=== PATIENT | female | born 1990 | race Two or more races ===

== ENCOUNTER 2024-05-09 17:23 | Emergency (ER) | payer MEDICAID, SELFPAY ==
[2024-05-09 17:24] VITALS: BMI 35.9
[2024-05-09 17:54] VITALS: BP 144/81; PULSE 81; RESP 18; TEMP 36.9; O2SAT 99
--- NOTE | 2024-05-09 17:55 | XR_ITS ---
Examination: Complete OB ultrasound, less than 14 weeks, transabdominal Date and time of exam: May 09, 2024 6:27 PM INDICATIONS: Vaginal bleeding beginning 2 days ago Technique: Obstetrical ultrasound images less than 14 weeks performed via transabdominal imaging Findings: Uterus 9.1 x 4.6 x 5.3 cm Intrauterine gestational sac 1.6 cm corresponds to 6 weeks 3 days gestational age No pole No cardiac activity Right ovary 3.3 cm arterial flow Left 3.3 cm arterial flow IMPRESSION: Empty intrauterine gestational sac corresponding to 6 weeks 3 days gestational age Recommend short term follow-up transvaginal pelvic sonography to document viability
--- NOTE | 2024-05-09 17:55 | PD.EDRME ---
Rapid Medical Screening Exam E Arrival date/time: 05/09/24 17:23 34-year-old female with no known medical history presents to the emergency room with a chief complaint of vaginal bleeding and lower abdominal cramping x 1 day. Patient is currently 7 weeks she is a G1, P0. I have greeted and performed a focused initial assessment of this patient. A comprehensive ED assessment and evaluation of the patient, analysis of all test results, and completion of the medical decision making process will be conducted by additional ED providers. Chief Complaint: Vaginal Bleeding Vital signs reviewed by provider: Yes
[2024-05-09 18:34] LABS: Basophils % (Auto) 0 % (0-2.5); Eosinophils # (Auto) 0.4 Thou/mm3 (0.0-0.5); Eosinophils % (Auto) 3 % (0-10); Hematocrit 39.8 % (36.0-46.0); Hemoglobin 13.7 g/dL (12.0-16.0); Immature Granulocytes % (Auto) 0 % (0-0); Immature Granulocytes Auto 0.03 Thou/mm3 (0.00-0.00); Lymphocytes # (Auto) 3.3 Thou/mm3 (1.0-4.8); Lymphocytes % (Auto) 25 % (10-50); Mean Corpuscular HGB Conc 34.4 g/dl (31.0-37.0); Mean Corpuscular Hemoglobin 28.7 pg (25.0-35.0); Mean Corpuscular Volume 83 fL (80-100); Monocytes # (Auto) 0.9 Thou/mm3 (0.0-0.8); Monocytes % (Auto) 7 % (0-12); Neutrophils # (Auto) 8.6 Thou/mm3 (1.8-7.7); Neutrophils % (Auto) 65 % (37-80); Nucleated Red Blood Cell % 0 /100 WBC (0); Platelet Count 243 Thou/mm3 (140-440); RDW Standard Deviation 39.5 fL (36.4-46.3); Red Blood Count 4.78 Miln/mm3 (4.00-5.20); White Blood Count 13.2 Thou/mm3 (3.6-11.0)
[2024-05-09 18:48] LABS: Alanine Aminotransferase 16 U/L (10-49); Albumin, Serum 4.3 gm/dL (3.5-5.0); Albumin/Globulin Ratio 1.6 (1.2-2.2); Alkaline Phosphatase 54 U/L (46-116); Anion Gap 9 (7-16); Aspartate Amino Transferase 11 U/L (0-34); BUN/Creatinine Ratio 17 Ratio (12-20); Bilirubin,Total 0.5 mg/dL (0.3-1.2); Blood Urea Nitrogen 12 mg/dL (9-23); Carbon Dioxide 22.6 mMol/L (20.0-31.0); Chloride 105 mMol/L (98-107); Creatinine (Component) 0.7 mg/dL (0.6-1.3); Globulin 2.7 gm/dL (2.3-3.5); Glucose 89 mg/dL (74-106); Osmolality,Calculated 272 (275-295); Potassium 4.3 mMol/L (3.4-5.1); Sodium 137 mMol/L (136-145); eGFR > 60 See Note
[2024-05-09 19:18] LABS: Beta HCG,Quantitative 32832 mIU/mL (<5.0)
[2024-05-09 19:49] LABS: Collection Type, Urine Clean Catch
[2024-05-09 20:19] LABS: Bilirubin,Urine Negative (Negative); Blood,Urine 3+ (Negative); Clarity,Urine Clear (Clear/Hazy); Color,Urine Lt-Brown (Lt Yel-Yel); Glucose, Urine Negative (Negative); Ketones,Urine Negative (Negative); Leukocyte Esterase,Urine Positive (Negative); Nitrite,Urine Negative (Negative); Protein,Urine 1+ (Neg - Trace); RBC,Urine 161 /hpf (0-3); Specific Gravity,Urine 1.019 (1.001-1.035); Squamous Epithelial Cell,Urine 6 /hpf (0-5); Urobilinogen,Urine Negative mg/dL (0.0-1.0); WBC,Urine 7 /hpf (0-5)
[2024-05-09 20:23] LABS: Sperm,Urine Present
[2024-05-09 21:24] VITALS: BP 126/85; PULSE 73; RESP 18; TEMP 36.8; O2SAT 99
--- NOTE | 2024-05-09 21:24 | EDNOTE_ITS ---
ED OB Contraction Preg RMI/HPI General Chief complaint: Vaginal Bleeding Stated complaint: VAGINAL BLEEDING AND CURRENTLY , LMP 12/15 Time Seen by Provider: 05/09/24 21:23 Arrival date/time: 05/09/24 17:23 34 year old female present to emergency room with c/o of vaginal bleeding/spotting today. per patient unsure how many weeks she is. LOCATION: suprapubic SEVERITY: Symptoms are described as being severe with limitations on activities of daily living QUALITY: Symptoms are described as being cramping CONTEXT: The patient is unable to identify any inciting events. DURATION/TIMING: The symptoms started approximately one day ago and have been waxing/waning but always present without ever completely resolving. ASSOCIATED SYMPTOMS: The patient is unable to identify any other associated symptoms. MODIFYING FACTORS: The patient is unable to identify any alleviating or aggravating symptoms. PERTINENT ROS: denies trauma, denies domestic violence, no dysuria or hematuria, no orthostatic symptoms, no nausea or vomiting, no fevers, no anorexia, no diarrhea or constipation REVIEW OF SYSTEMS: See History of Present Illness - with the exception of those mentioned in the history of present illness, all other systems reviewed and reported as negative GENERAL: In general the patient is awake, interactive, in an emergency department gurney. HEAD/EYES/EARS/NOSE/THROAT: normo-cephalic, atraumatic, mucus membranes are moist, anicteric, palpebral conjunctiva is pink, trachea is midline. CARDIOVASCULAR: regular rate and regular rhythm, no murmurs, heart sounds are not distant, strong pulses in all four extremities that are equal and symmetric bilateral upper and lower extremities, normal capillary refill. CHEST/PULMONARY: normal chest rise and fall, good air movement, clear to auscultation bilaterally, normal inspiratory to expiratory ratios without evidence of respiratory distress. NECK: No midline/Paraspinal tenderness, no step off ROM/Strenght intact No Kernig and bruzinski sign. No trauma ABDOMEN: soft, not tender, no masses appreciated BACK: normal range of motion without pain. NEUROLOGICAL: cranio-facial features are symmetric, moves all four extremities equally without obvious limitations or weakness. EXTREMITY: no tenderness to palpation over the long bones or large joints of the bilateral upper and lower extremities, no joint swelling, no joint erythema, no signs of trauma, no unilateral leg swelling and no peripheral edema. SKIN: warm, dry, well-perfused, no jaundice, no rash, no telangiectasias or petechia. PSYCH: calm, cooperative, no evidence of psychosis or agitation RME / HPI RME / HPI Narrative: 05/09/24 17:23 34-year-old female with no known medical history presents to the emergency room with a chief complaint of vaginal bleeding and lower abdominal cramping x 1 day. Patient is currently 7 weeks she is a G1, P0. I have greeted and performed a focused initial assessment of this patient. A comprehensive ED assessment and evaluation of the patient, analysis of all test results, and completion of the medical decision making process will be conducted by additional ED providers. Related Data Allergies Allergy/AdvReac Type Severity Reaction Status Date / Time No Known Allergies Allergy Verified 05/09/24 17:24 Course Course Course Narrative: This patient presents with vaginal bleeding in the first trimester. DDX includes ectopic, IUP, threatened/inevitable , along with completed ab ortion. Patient is HDS and without a history of coagulopathy or infectious symptoms. Doubt alternate acute emergent pathology. Plan: bHCG, +/- basic labs, type and screen, TVUS, reassess Quality Measures none Orders Category Date Time Status US OB <= 14 weeks fetus Stat Exams 05/09/24 17:55 Completed ABO/RH Type Stat Lab 05/09/24 18:06 Completed Beta HCG,Quantitative Stat Lab 05/09/24 18:06 Completed CBC Stat Lab 05/09/24 18:06 Completed CMP [Comprehensive Metabolic Panel] Stat Lab 05/09/24 18:06 Completed UA [Urinalysis] Stat Lab 05/09/24 18:25 Completed Vital Signs Vital signs: Vital Signs Temperature 98.4 F 05/09/24 17:54 Pulse Rate 81 05/09/24 17:54 Respiratory Rate 18 05/09/24 17:54 Blood Pressure 144/81 H 05/09/24 17:54 Pulse Oximetry (%) 99 05/09/24 17:54 Oxygen Delivery Method Room Air 05/09/24 17:54 Vaginal Bleeding Patient data External records reviewed:: None Clinical information provided by:: patient Social determinants that could affect healthcare access:: none Patient has the following chronic illnesses:: none How is presenting disease/condition affected by chronic disease/condition?: no chronic disease Evaluation data The following diagnostics were reviewed and interpreted by me:: lab results and radiology exam(s) Lab and/or radiology exams considered but not ordered:: none Interpretation Summary: hcg; 32k us: Uterus 9.1 x 4.6 x 5.3 cm Intrauterine gestational sac 1.6 cm corresponds to 6 weeks 3 days gestational age No pole No cardiac activity Right ovary 3.3 cm arterial flow Left 3.3 cm arterial flow IMPRESSION: Empty intrauterine gestational sac corresponding to 6 weeks 3 days gestational age Recommend short term follow-up transvaginal pelvic sonography to document viability urine dirty specimen, urine culture pending, denies any current uti sx Medications / Prescriptions Medications or Prescriptions considered but not ordered:: none Medication administrations:: none Consultations Consultation(s) initiated? (list below): No Diagnosis Vaginal Bleeding Differential Diagnosis: missed , threatened , dysfunctional uterine bleeding, ectopic without intrauterine , vaginal bleeding and other (UTI) Most likely diagnosis given after review of the tests above:: vaginal bleeding, Admission Indicated Admission indicated?: not indicated Admission Request Was there a request for admission?: No Disposition Plan Disposition Plan: Discharge Discharge Attestation Discharge Attestation: The patient and all family members were given an opportunity to ask questions and understood the discharge instructions. Discharge instructions specifically effects, indications for sooner follow up or return to the emergency department, and the expected course of current diagnosis. Patient condition: Stable Discharge Plan Plan Patient Disposition: HOME (Self Care) Health Concerns: Return to ED or OB for repeat US Return to ED if symptoms worsen Prescriptions/Referrals Referrals: No Primary/Family,Physician [Primary Care Provider] - In 1 week Problem List Clinical Impression: Vaginal bleeding during Patient/Caregiver Discharge Instructions Education Materials: Bleeding During Early Print Language: Maltese Stand Alone Forms: [employer] Award Info., Patient Portal Info Letter
[2024-05-09 21:31] VITALS: RESP 18
== END 2024-05-09 21:32 | disposition home or self-care (01) ==
PROVIDERS: Nurse Practitioner Family; Emergency Provider Emergency Medicine
DX: O20.9 Hemorrhage in early pregnancy, unspecified (principal); Z3A.01 Less than 8 weeks gestation of pregnancy
CPT/HCPCS: 36415; 76801; 80053; 81001; 84702; 85025; 86900; 86901; 87086; 99284

== ENCOUNTER 2024-05-26 20:00 | Emergency (ER) | payer MEDICAID, SELFPAY ==
[2024-05-26 20:02] VITALS: BMI 35.9
[2024-05-26 20:17] VITALS: BP 140/84; PULSE 85; RESP 18; TEMP 36.7; O2SAT 97
--- NOTE | 2024-05-26 20:25 | XR_ITS ---
Examination: OB Transvaginal ultrasound of the pelvis, complete Technique: Transvaginal sonographic images pelvis performed using rivera scale imaging Exam date and time: May 26, 2024 11:13 PM Indications: Pelvic pain beginning today Findings: Uterus 11.7 cm pole 2.1 cm corresponds to 8 weeks 5 day gestational age Cardiac motion 166 BPM Right ovary 2.9 cm arterial flow Left ovary 3.4 cm arterial flow small follicles Impression: Viable intrauterine gestation 8 weeks 5 days.
--- NOTE | 2024-05-26 20:42 | EDNOTE_ITS ---
<Statement entered by Nyasia Shen MD - 05/27/24 04:04> As co-signing physician, I was present and available for consult prn. I concur with the plan and care as documented by the midlevel provider. ED OB Contraction Preg RMI/HPI General Chief complaint: OB/Uterine Contractions Stated complaint: 8 weeks preg. . Sharp pains Time Seen by Provider: 05/26/24 20:24 Arrival date/time: 05/26/24 20:00 34F at approximately 8 weeks and with no significant PMH presents to ED with 1 day of L pelvic pain/cramping, but no dysuria/hematuria or vaginal bleeding. Limitations: no limitations Related Data Allergies Allergy/AdvReac Type Severity Reaction Status Date / Time No Known Allergies Allergy Verified 05/09/24 17:24 Review of Systems Review of Systems Systems Reviewed: All systems reviewed, normal except as documented Constitutional Constitutional: Reports system reviewed and no additional complaints, except as documented, Denies fever(s) and Denies headache(s) ENT Ears, Nose, Mouth, and Throat: Denies disequilibrium and Denies headache(s) Cardiovascular Cardiovascular: Reports system reviewed and no additional complaints, except as documented, Denies chest pain and Denies dyspnea Respiratory Respiratory: Reports system reviewed and no additional complaints, except as documented, Denies cough and Denies dyspnea Gastrointestinal Gastrointestinal: Reports system reviewed and no additional complaints, except as documented, Denies abdominal pain, Denies nausea and Denies vomiting Genitourinary Genitourinary: Reports as per HPI and Reports pelvic pain Neurologic Neurologic: Reports system reviewed and no additional complaints, except as documented, Denies confusion, Denies disequilibrium and Denies headache(s) Psychiatric Psychiatric: Denies confusion Past Medical History Social History SMOKING STATUS: Never smoker ED Exam General Limitations: Present no limitations General appearance: Present alert and in no apparent distress Head Head exam: Present atraumatic Eye Eye exam: Present normal appearance, PERRL and EOMI ENT ENT exam: Present normal exam, normal oropharynx and mucous membranes moist Neck Neck exam: Present normal inspection, full ROM and trachea midline Chest Chest inspection: Present normal inspection and symmetric chest wall rise Respiratory Respiratory exam: Present normal lung sounds bilaterally Cardiovascular Cardiovascular exam: Present regular rate, normal rhythm and normal heart sounds Abdominal Exam Abdominal exam: Present soft and normal bowel sounds Extremities Exam Extremities exam: Present normal inspection and full ROM Back Exam Back exam: Present normal inspection and full ROM Neurological Exam Neurological exam: Present alert, oriented X3 and CN II-XII intact Psychiatric Psychiatric exam: Present normal affect and normal mood Skin Skin exam: Present warm, dry, intact and normal color Course Quality Measures none Orders Category Date Time Status US OB transvaginal Stat Exams 05/26/24 20:25 Completed Beta HCG,Quantitative Stat Lab 05/26/24 20:34 Completed CBC Stat Lab 05/26/24 20:34 Completed CMP [Comprehensive Metabolic Panel] Stat Lab 05/26/24 20:34 Completed Urinalysis, C/S if Indicated Stat Lab 05/26/24 21:03 Completed Vital Signs Vital signs: Vital Signs Temperature 98.1 F 05/26/24 20:17 Pulse Rate 85 05/26/24 20:17 Respiratory Rate 18 05/26/24 20:17 Blood Pressure 140/84 H 05/26/24 20:17 Pulse Oximetry (%) 97 05/26/24 20:17 Oxygen Delivery Method Room Air 05/26/24 20:17 O2 at 97% on RA and WNLs Vaginal Bleeding MDM Narrative MDM Narrative: 34F at approximately 8 weeks and with no significant PMH presents to ED with 1 day of L pelvic pain/cramping, but no dysuria/hematuria or vaginal bleeding. Physical exam reveals no pelvic tenderness. Patient is afebrile, calm, and alert. US reveals normal IUP. Nabothian cysts were noted on cervix. UA contaminated but sperm also present. Beta HCG WNLs. Pain likely due to intercourse that irritated cysts. Patient data External records reviewed:: [facility] previous records Clinical information provided by:: patient Social determinants that could affect healthcare access:: none Patient has the following chronic illnesses:: none How is presenting disease/condition affected by chronic disease/condition?: no chronic disease Evaluation data The following diagnostics were reviewed and interpreted by me:: lab results and radiology exam(s) Lab and/or radiology exams considered but not ordered:: ordered Interpretation Summary: above Medications / Prescriptions Medications or Prescriptions considered but not ordered:: not ordered Medication administrations:: n/a Consultations Consultation(s) initiated? (list below): No Diagnosis Vaginal Bleeding Differential Diagnosis: missed , threatened , dysfunctional uterine bleeding, menometrorrhagia, incomplete , ectopic without intrauterine , vaginal bleeding and other (ovarian cyst/torsion, nabothian cyst) Most likely diagnosis given after review of the tests above:: nabothian cyst Admission Indicated Admission indicated?: not indicated Admission Request Was there a request for admission?: No Disposition Plan Disposition Plan: Discharge Discharge Attestation Discharge Attestation: The patient and all family members were given an opportunity to ask questions and understood the discharge instructions. Discharge instructions specifically effects, indications for sooner follow up or return to the emergency department, and the expected course of current diagnosis. Patient condition: Stable Discharge Plan Plan Patient Disposition: HOME (Self Care) Disposition Comment: Stable Prescriptions/Referrals Referrals: Marjorie Silveira [employer] [Primary Care Provider] - In 1 week Problem List Clinical Impression: Nabothian cyst Patient/Caregiver Discharge Instructions Additional Instructions: Please follow-up with PCP/OBGYN within 24-48 hours and return immediately if symptoms worsen. Print Language: Uzbek Stand Alone Forms: Patient Portal Info Letter LORENA/SHAHEED Supervising Physician LORENA/SHAHEED Supervising Physician: Dr. Shen
[2024-05-26 21:03] LABS: Basophils % (Auto) 0 % (0-2.5); Eosinophils # (Auto) 0.3 Thou/mm3 (0.0-0.5); Eosinophils % (Auto) 2 % (0-10); Hematocrit 37.5 % (36.0-46.0); Immature Granulocytes % (Auto) 1 % (0-0); Immature Granulocytes Auto 0.07 Thou/mm3 (0.00-0.00); Lymphocytes # (Auto) 3.5 Thou/mm3 (1.0-4.8); Lymphocytes % (Auto) 24 % (10-50); Mean Corpuscular HGB Conc 34.7 g/dl (31.0-37.0); Mean Corpuscular Hemoglobin 28.6 pg (25.0-35.0); Mean Corpuscular Volume 82 fL (80-100); Monocytes % (Auto) 7 % (0-12); Neutrophils # (Auto) 9.6 Thou/mm3 (1.8-7.7); Neutrophils % (Auto) 66 % (37-80); Nucleated Red Blood Cell % 0 /100 WBC (0); Platelet Count 221 Thou/mm3 (140-440); RDW Standard Deviation 38.9 fL (36.4-46.3); Red Blood Count 4.55 Miln/mm3 (4.00-5.20); White Blood Count 14.5 Thou/mm3 (3.6-11.0)
[2024-05-26 21:15] LABS: Collection Type, Urine Clean Catch
[2024-05-26 21:25] LABS: Alanine Aminotransferase 24 U/L (10-49); Albumin, Serum 4.2 gm/dL (3.5-5.0); Albumin/Globulin Ratio 1.6 (1.2-2.2); Alkaline Phosphatase 49 U/L (46-116); Anion Gap 9 (7-16); Aspartate Amino Transferase 13 U/L (0-34); BUN/Creatinine Ratio 20 Ratio (12-20); Bilirubin,Total 0.4 mg/dL (0.3-1.2); Blood Urea Nitrogen 12 mg/dL (9-23); Calcium 9.5 mg/dL (8.3-10.6); Calcium (Corrected) 9.5 mg/dL (8.5-10.1); Carbon Dioxide 23.9 mMol/L (20.0-31.0); Chloride 106 mMol/L (98-107); Creatinine (Component) 0.6 mg/dL (0.6-1.3); Estimated Creatinine Clearance 134.2 mL/min (>60); Globulin 2.6 gm/dL (2.3-3.5); Glucose 102 mg/dL (74-106); Osmolality,Calculated 277 (275-295); Potassium 3.8 mMol/L (3.4-5.1); Sodium 139 mMol/L (136-145); Total Protein 6.8 gm/dL (5.7-8.2); eGFR > 60 See Note
[2024-05-26 21:57] LABS: Bilirubin,Urine Negative (Negative); Blood,Urine Trace (Negative); Budding Yeast,Urine Present; Clarity,Urine Turbid (Clear/Hazy); Color,Urine Yellow (Lt Yel-Yel); Culture Indicated,Urine Contaminated; Glucose, Urine Negative (Negative); Ketones,Urine Negative (Negative); Leukocyte Esterase,Urine Positive (Negative); Nitrite,Urine Negative (Negative); Protein,Urine Trace (Neg - Trace); RBC,Urine 14 /hpf (0-3); Specific Gravity,Urine 1.035 (1.001-1.035); Squamous Epithelial Cell,Urine 114 /hpf (0-5); Urobilinogen,Urine Negative mg/dL (0.0-1.0); WBC,Urine 46 /hpf (0-5)
[2024-05-26 22:02] LABS: Beta HCG,Quantitative 180164 mIU/mL (<5.0)
[2024-05-26 22:03] LABS: Sperm,Urine Present
== END 2024-05-27 00:07 | disposition home or self-care (01) ==
PROVIDERS: Physician Assistant; Emergency Provider Emergency Medicine; PCP Nurse Practitioner Family
DX: O34.81 Maternal care for other abnormalities of pelvic organs, first trimester (principal); N88.8 Other specified noninflammatory disorders of cervix uteri; Z3A.08 8 weeks gestation of pregnancy
CPT/HCPCS: 36415; 76817; 80053; 81001; 84702; 85025; 99284

== ENCOUNTER 2024-08-19 17:51 | Observation (INO) | payer MEDICAID, SELFPAY ==
[2024-08-19 18:10] VITALS: BP 137/71; PULSE 85
[2024-08-19 18:25] VITALS: BMI 37.5
--- NOTE | 2024-08-19 18:36 | ESPR_ITS ---
Documentation for date of: 08/19/24 OB Labor Progress Note Contractions Monitor mode: External Assessment and Plan Comments: Triage Note Jacqueline is a 34yo with SIUP at 22wk presenting to L&D for lower back pain. She ran around the park with her dogs for a bit and when she went home, she used the restroom and while on the toilet had back pain that made it difficult to stand up. She took 1 flexeril and placed a lidocaine patch. Pain has improved though not totally resolved. She notes having a history of lower back pain prior to . No lof, no vaginal bleeding, no ctx, no abdominal pain. Normal movement. Current : This has been otherwise uncomplicated, she has had regular OB care with Dr. Maira HELM negative other than what was described above. Vitals wnl, afebrile General: well developed, well nourished, no acute distress, conversant Cardiac: normal heart rate Lungs: breathing without distress Abdomen: soft, gravid, non-tender, no rebound or guarding Extremities: no edema of BLE NST: Reassuring for gestational age [place]: no ctx pattern Assessment: Jacqueline is a 34yo with SIUP at 22wk with lower back pain, pre- existing and exacerbated by physiologic changes of . No red flag symptoms. Vitals wnl, benign exam. Reassuring status. Plan: -Discussed findings and diagnosis with patient and support person, answered all questions to their apparent satisfaction -Continue routine follow up with OBGYN as scheduled within a week. Instructed patient to ask her OBGYN for referral to Physical Therapy. -Recommend heating pad or warm shower, massage, avoiding movements that exacerbate pain, ok to take tylenol 1000mg PO Q6hr prn -Belly band provided from L[employer]D supply -Discussed return precautions -Safe for discharge home at this time Enedina Starkey MD
[2024-08-19 18:53] VITALS: BP 137/71; PULSE 85; RESP 18; RESP 99; TEMP 36.8
== END 2024-08-19 18:40 | disposition home or self-care (01) ==
PROVIDERS: Admitting Provider Obstetrics & Gynecology; Visit Provider Obstetrics & Gynecology
DX: O26.892 Other specified pregnancy related conditions, second trimester (principal); Z3A.22 22 weeks gestation of pregnancy; M54.50 Low back pain, unspecified
CPT/HCPCS: 59025; 59899

== ENCOUNTER 2024-12-13 13:59 | Inpatient (IN) | payer MEDICAID, SELFPAY ==
[2024-12-13] VITALS (137 sets, daily range): BP systolic 108–179; BP diastolic 58–102; PULSE 82–116; RESP 17–98; TEMP 36.6–36.7; O2SAT 88–100; BMI 48.9
[2024-12-13 13:19] LABS: Basophils # (Auto) 0.0 Thou/mm3 (0.0-0.2); Basophils % (Auto) 0 % (0-2.5); Eosinophils # (Auto) 0.2 Thou/mm3 (0.0-0.5); Eosinophils % (Auto) 2 % (0-10); Hematocrit 35.8 % (36.0-46.0); Hemoglobin 12.3 g/dL (12.0-16.0); Immature Granulocytes Auto 0.08 Thou/mm3 (0.00-0.00); Lymphocytes # (Auto) 2.1 Thou/mm3 (1.0-4.8); Lymphocytes % (Auto) 19 % (10-50); Mean Corpuscular HGB Conc 34.4 g/dl (31.0-37.0); Mean Corpuscular Hemoglobin 28.5 pg (25.0-35.0); Mean Corpuscular Volume 83 fL (80-100); Monocytes # (Auto) 0.8 Thou/mm3 (0.0-0.8); Monocytes % (Auto) 8 % (0-12); Neutrophils # (Auto) 7.7 Thou/mm3 (1.8-7.7); Neutrophils % (Auto) 71 % (37-80); Nucleated Red Blood Cell # 0.00 Thou/mm3 (0.00-0.00); Nucleated Red Blood Cell % 0 /100 WBC (0); Platelet Count 156 Thou/mm3 (140-440); RDW Standard Deviation 42.9 fL (36.4-46.3); Red Blood Count 4.31 Miln/mm3 (4.00-5.20); White Blood Count 10.9 Thou/mm3 (3.6-11.0)
[2024-12-13 13:21] LABS: Collection Type, Urine Clean Catch; RBC,Urine 0 /hpf (0-3)
[2024-12-13 13:31] LABS: Bacteria,Urine 1+; Bilirubin,Urine Negative (Negative); Blood,Urine Negative (Negative); Clarity,Urine Turbid (Clear/Hazy); Color,Urine Yellow (Lt Yel-Yel); Glucose, Urine Negative (Negative); Hyaline Casts,Urine < 1 /hpf (0-1); Ketones,Urine Negative (Negative); Leukocyte Esterase,Urine Positive (Negative); Nitrite,Urine Negative (Negative); PH,Urine 7.0 (5.0-7.0); Protein,Urine Trace (Neg - Trace); Specific Gravity,Urine 1.017 (1.001-1.035); Squamous Epithelial Cell,Urine 35 /hpf (0-5); Urobilinogen,Urine Negative mg/dL (0.0-1.0); WBC,Urine 9 /hpf (0-5)
[2024-12-13 13:36] LABS: Creatinine,Random Urine 78 mg/dL (30-125); Protein Total, Random Urine 39 mg/dL (1-14)
[2024-12-13 13:38] LABS: Alanine Aminotransferase 15 U/L (10-49); Albumin, Serum 3.5 gm/dL (3.5-5.0); Albumin/Globulin Ratio 1.8 (1.2-2.2); Alkaline Phosphatase 105 U/L (46-116); Anion Gap 11 (7-16); Aspartate Amino Transferase 17 U/L (0-34); BUN/Creatinine Ratio 12 Ratio (12-20); Bilirubin,Total 0.5 mg/dL (0.3-1.2); Blood Urea Nitrogen 7 mg/dL (9-23); Calcium 9.4 mg/dL (8.3-10.6); Calcium (Corrected) 9.8 mg/dL (8.5-10.1); Carbon Dioxide 19.1 mMol/L (20.0-31.0); Chloride 110 mMol/L (98-107); Creatinine (Component) 0.6 mg/dL (0.6-1.3); Estimated Creatinine Clearance 160.8 mL/min (>60); Globulin 2.0 gm/dL (2.3-3.5); Glucose 84 mg/dL (74-106); LDH (Lactate Dehydrogenase) 158 U/L (120-246); Osmolality,Calculated 276 (275-295); Potassium 4.4 mMol/L (3.4-5.1); Sodium 140 mMol/L (136-145); Total Protein 5.5 gm/dL (5.7-8.2); Uric Acid 4.4 mg/dL (3.1-7.8); eGFR > 60 See Note
[2024-12-13 14:26] LABS: INR 0.9 (0.9-1.3); Partial Thromboplastin Time 27.3 Seconds (22.0-36.0); Prothrombin Time 10.2 Seconds (9.0-12.2)
[2024-12-13 14:27] LABS: Fibrinogen 702 mg/dL (175-375)
--- NOTE | 2024-12-13 15:04 | XR_ITS ---
Examination: Complete OB ultrasound greater than 14 weeks Date and time of exam: December 13, 2024, 1529 hrs. Indications: Diagnosis preeclampsia of . Findings: Viable intrauterine single fetus with single amniotic sac presentation cephalic, spine maternal left. Cardiac motion 130 BPM. Placenta anterior grade 2. Umbilical cord insertion seen. Amniotic fluid index 9.8 cm. spine maternal left. Cervix 3.0 cm. Ovaries obscured by bowel gas.. Composite estimated gestational age based on BPD, head circumference, abdominal circumference, femur length is 38 weeks 2 days. Estimated weight 3351.8 g.. Survey of intracranial anatomy, spinal anatomy, abdominal anatomy, four-chamber heart performed with no abnormalities identified. Impression: Viable intrauterine gestation cephalic presentation..
[2024-12-13] MEDS: RINGERS LACTATED 1000 ML 1,000 ML 100 ML IV ×2 (17:27→18:26)
[2024-12-13 17:49] LABS: Syphilis Nonreactive (Nonreactive)
--- NOTE | 2024-12-13 22:43 | ESHP_ITS ---
Documentation for date of: 12/13/24 OB Labor/Induct. HPI History of Present Illness Chief complaint: Elevated blood pressures : 1 Para: 1 Term pregnancies: 0 pregnancies: 0 Living children: 0 History of Abortions: Spontaneous and Elective: 0 History of Vaginal deliveries: 0 History of sections: No History of : No GRETCHEN: 12/26/24 History of present illness: 34-year-old 1 para 0 at 38 weeks and 1 day who receives care with Dr. Rao at [facility] was sent in from office due to elevated blood pressures in the severe range x 2. Patient initially presented to triage where her blood pressures were monitored and it continued to be elevated and her lab testing she had elevated urine protein creatinine ratio of 0.5 patient on presentation denies any headache or visual symptoms or epigastric or right upper quadrant pain. Patient does not report any baseline hypertension prior to and she was not being treated for any gestational hypertension during . She denies any contractions or leakage of fluid or vaginal bleeding and reports adequate movements. History of Present Adequate Care: Yes Labs Labs: Negative: RPR, Hepatitis B, Rubella Titre, HIV and Group Beta Strep and Unknown: Chlamydia, Gonorrhea, Herpes Type 1, Herpes Type 2 and Covid- 19 Review of Systems Review of Systems Systems Reviewed: All systems reviewed, normal except as documented Past Medical History Surgical History SURGICAL: Negative Section Meds Home Medications and Allergies Home Medications ?Medication ?Instructions ?Recorded ?Confirmed ?Type vit no.95-ferrous 1 tab PO QDAY 12/13/2412/03 History fumarate 28 mg-folic acid 800 mcg tablet () Allergies Allergy/AdvReac Type Severity Reaction Status Date / Time No Known Allergies Allergy Verified 12/13/24 15:24 OB Exam Physical Exam Vital signs: Temp Pulse Resp BP Pulse Ox O2 Del Method 98.1 F 89 17 121/64 99 Room Air 12/13/24 17:03 12/13/24 22:15 12/13/24 17:03 12/13/24 22:15 12/13/24 22:42 12/13/24 17:03 Constitutional Constitutional: no acute distress Routine HEENT Exam Head: Present normocephalic and atraumatic Eye: Present EOMI and PERRL ENT: Present mucous membranes moist Routine Neck Exam Neck: Present supple and trachea midline Routine Cardiovascular Exam Cardiovascular: Present RRR Routine Abdominal Exam Abdominal: Present soft and normoactive bowel sounds Detailed Labor and Delivery Exam Dilation (cm): 3 Effacement (%): 50 Cervix position: posterior station: -4 Consistency: firm Presentation: Vertex Baseline heart rate: 145 monitor accelerations: 15x15 monitor decelerations: None buttermaker continuous churn variability: Average (6-10) Routine Extremities Exam Extremities: Present full ROM Routine Skin Exam Skin: Present intact, dry and warm Routine Neurological Exam Neurological: Present alert, oriented X3 and CN II-XII intact Routine Psychiatric Exam Psychiatric: Present normal affect and normal thought process OB Results Labs 12/13/24 13:10 12/13/24 13:10 Labs: Short CBC 12/13/24 Range/Units 13:10 WBC 10.9 (3.6-11.0) Thou/mm3 Hgb 12.3 (12.0-16.0) g/dL Hct 35.8 L (36.0-46.0) % Plt Count 156 (140-440) Thou/mm3 BMP 12/13/24 13:10 Sodium 140 Potassium 4.4 Chloride 110 H Carbon Dioxide 19.1 L BUN 7 L Creatinine 0.6 Glucose 84 Calcium 9.4 Liver Function 12/13/24 Range/Units 13:10 Total Bilirubin 0.5 (0.3-1.2) mg/dL AST 17 (0-34) U/L ALT 15 (10-49) U/L Alkaline Phosphatase 105 (46-116) U/L Albumin 3.5 (3.5-5.0) gm/dL Urine 12/13/24 Range/Units 12:00 Urine Color Yellow (Lt Yel-Yel) Urine Clarity Turbid A (Clear/Hazy) Urine pH 7.0 (5.0-7.0) Ur Specific [place] 1.017 (1.001-1.035) Urine Protein Trace (Neg - Trace) Urine Glucose (UA) Negative (Negative) OB Assessment & Plan Assessment and Plan (1) Encounter for induction of labor: Status: Acute (2) Supervision of high risk , unspecified, third trimester: Status: Acute (3) Preeclampsia: Status: Acute Assessment and plan: 34-year-old 1 para 0 at 38 weeks and 1 day with new onset preeclampsia without severe features Plan: Admit to inpatient status for induction of labor Complete bedside ultrasound for EFW Preeclampsia labs reviewed with elevated Spot protein creatinine ratio Close monitoring of blood pressures Cervical ripening with misoprostol and will proceed to oxytocin when cervix is favorable Continuous maternal monitoring Patient informed of all the risks including the risk of requiring delivery if there is acute worsening of blood pressures or signs of distress (3) Preeclampsia Qualifiers: Trimester: third trimester Qualified Code(s): O14.93 - Unspecified pre- eclampsia, third trimester
[2024-12-14] VITALS (210 sets, daily range): BP systolic 112–240; BP diastolic 58–140; PULSE 81–115; RESP 16–18; TEMP 36.6–36.9; O2SAT 71–100
[2024-12-14 09:44] LABS: Chlamydia trachomatis PCR Negative (Not Detect); Neisseria Gonorrhoeae DNA PCR Negative (Not Detect); Trichomonas Negative (Negative)
--- NOTE | 2024-12-14 10:45 | PD.LDPN ---
Documentation for date of: 12/14/24 OB Labor Progress Note Pelvic Exam Dilation (cm): 3.5 Effacement (%): 60 station: -3 Amniotic membrane status: Intact Contractions Monitor mode: External Contraction frequency: 2-6 Contraction pattern: Coupling Contraction intensity: Mild Status status: Category l Assessment and Plan Comments: I assumed care of Jacqueline at 0700 this morning. In brief, she is a 34yo with SIUP at 38w1d undergoing IOL for pre-eclampsia withOUT severe features. She saw Dr. Rao for [facility] who sent her to L&D for PIH workup when she had severe range bp in office. Since arrival bp's are normal to mild range. Urine p:c 0.5. also complicated by current BMI 48.9. Induction was started with PO cytotec. She has now had 3 doses. Most recent SCE /-2. Cat I FHRT Will change dosing to PV with 4th cytotec dose. Continue to closely monitor bp's. CEFM Safe to proceed Enedina Starkey MD
[2024-12-14] MEDS: OXYTOCIN in NS 30 units 30 UNIT/500 ML BAG IV (12:05)
[2024-12-14] MEDS: RINGERS LACTATED 1000 ML 1,000 ML 100 ML IV ×2 (17:04→19:14)
[2024-12-14] MEDS: LABETALOL INJ 5 MG/ML VIAL 20 ML 20 MG IVP (21:02)
--- NOTE | 2024-12-14 21:29 | PD.LDPN ---
Documentation for date of: 12/14/24 OB Labor Progress Note Pelvic Exam Dilation (cm): 5 Effacement (%): 80 station: -2 Amniotic membrane status: Intact Contractions Monitor mode: External Contraction frequency: 1.5-2 Contraction pattern: Coupling Contraction intensity: Moderate Status status: Category l Assessment and Plan Comments: Intrapartum Note Patient had epidural, but she's still feeling ctx quite a bit. Recently had 2 severe range bp's which required labetalol 20mg IV push x1- related to pain. Cat I FHRT until AROM, then variable decels began timed with ctx- resolved with repositioning. Ctx q2min SCE: 6/80/-2, AROM performed with abundant clear fluid. IUPC and FSE placed. Will continue to titrate pitocin to adequate MVUs If any other severe range bp's recur, will initiate IV MgSO4 in conjunction with anti-HTN med protocol CEFM Will continue to closely monitor [employer] to re-eval epidural and maybe replace Safe to proceed Enedina Starkey MD
[2024-12-14] MEDS: LABETALOL INJ 5 MG/ML VIAL 20 ML 40 MG IVP (22:45)
[2024-12-14] MEDS: LABETALOL INJ 5 MG/ML VIAL 20 ML 80 MG IVP (23:06)
[2024-12-14] MEDS: Magnesium Sulfate 4 GM Ivpb 4 GM/50 ML BAG IV (23:11)
[2024-12-14] MEDS: MAGNESIUM SULF 20 GM IVPB 20 GM/500 ML BAG IV (23:41)
[2024-12-15] VITALS (54 sets, daily range): BP systolic 116–168; BP diastolic 56–100; PULSE 76–106; RESP 16–19; TEMP 36.6–37.2; O2SAT 86–100
[2024-12-15] MEDS: MINERAL OIL 30 ML UDC TOP (00:42)
[2024-12-15] MEDS: LIDOCAINE HCL 1% 20 ML VIAL INFL (00:55)
--- NOTE | 2024-12-15 01:29 | OBDSUM_ITS ---
Data (Patel) Data Hx Section: No : 1 Term: 0 : 0 Livin Abortions: Spontaneous & Theraputic: 0 Delivery Data (Patel) Labor Data Initiation of labor: Induction Induction/Augmentation Agent: Cytotec-PO, Pitocin and Artificial ROM ROM date: 12/14/24 ROM time: 21:19 Amniotic membrane rupture type: Artificial Amniotic fluid description: Clear Delivery Data Onset of labor date: 12/14/24 Onset of labor time: 21:19 Complete dilation date: 12/14/24 Complete dilation time: 23:34 delivery date: 12/15/24 [place] delivery time: 00:45 Placenta delivery date: 12/15/24 Placenta delivery time: 01:00 Stage 1 total time: Labor - Stage 1 Duration 2 hours and 15 minutes Delivered by: Enedina Starkey Delivery nurse: LUDMILA Mcleod Neworn nurse: LUDMILA Alvarez Logistics Planning Engineer at delivery: No Support person(s) at delivery: FOB AND MOM OF PATIENT Other staff at delivery: SHIRIN TAVERAS legal support specialist Method Delivery method: Normal Vaginal Delivery Presentation: Vertex Anesthesia Type Anesthesia Type: Epidural Placenta Placenta delivery description: Spontaneous Cord blood sent to lab: Yes cord blood collection: Cord Blood Type Episiotomy Episiotomy description: None EBL Estimated blood loss (ml): 300 Umbilical Cord cord description: 3 Vessels Additional Procedures Jacqueline is a 34yo [id number] s/p uncomplicated at 38w2d after undergoing IOL for pre-eclampsia WITH severe features, delivering at 0045 on 12/15/2024. On presentation, SCE was 2cm. She progressed with cytotec and then pitocin augmentation as well as AROM to C/C/0 at which point she began pushing. She received an epidural that was not fully effective and then had epidural later replaced which worked better. Initially she had mild range bp's but farther into labor she began to have severe range bp's, so she was started on IV MgSO4 4g/2g. She received IV labetalol 20mg, then 40mg and finally 80mg prior to delivery- this resulted in mild range bp's. With good maternal pushing efforts, infant's head delivered OA and restituted SIA. Left anterior shoulder delivered easily followed by posterior shoulder and corpus. had spontaneous cry and was vigorous. Apgars 8/9. placed on maternal abdomen where nose/mouth were suctioned and infant dri ed/stimulated. After approximately 2 minutes, cord was clamped x2 and cut by FOB. Cord blood collected for typing. With fundal massage and cord traction, placenta delivered spontaneously and intact with 3 vessel centrally inserted cord. Bimanual massage performed and IV pitocin given per protocol with fundus then firm at u-2cm and hemostasis noted. Inspection of perineum and vagina revealed bilateral labial lacerations and a 1st degree midline perineal laceration which were repaired in routine fashion with 4-0 and 3-0 vicryl, respectively, after anesthetizing with 1% lidocaine- total reapproximation and hemostasis achieved. Cytotec 800mcg NM placed for ppx against future bleeding. In addition, patient will receive another bag of IV pitocin once the initial bag is completed. She will remain on IV MgSO4 for 24hr post delivery. Loyd catheter to remain in place during bedrest and SCDs to be initiated. All counts correct x2. Mom and were doing well when I left the room. Enedina Starkey MD Complications Complications: none [place] Data (Patel) Data order: 1 [place]'s gender: Male Identification band number: [id number] weight (gms): 3810 g Weight (pounds): 8 lbs and 6.4 ozs length: 52 cm 1 minute: 8 5 minutes: 9 10 minutes: 9
[2024-12-15] MEDS: LABETALOL INJ 5 MG/ML VIAL 20 ML 20 MG IVP (01:38)
[2024-12-15] MEDS: MAGNESIUM SULF 20 GM IVPB 20 GM/500 ML BAG IV ×2 (01:41→12:03)
[2024-12-15] MEDS: NIFEdipine XL 30 MG TABCR PO ×2 (01:56→11:42)
[2024-12-15] MEDS: LABETALOL INJ 5 MG/ML VIAL 20 ML 40 MG IVP (01:57)
[2024-12-15] MEDS: BENZO/LANO/ALOE (Dermoplast) 60 GM CAN 1 SPRAY TOP (02:03)
[2024-12-15 02:12] LABS: Magnesium 3.6 mg/dL (1.6-2.6)
[2024-12-15] MEDS: LABETALOL INJ 5 MG/ML VIAL 20 ML 80 MG IVP (02:14)
[2024-12-15 07:00] LABS: Basophils # (Auto) 0.0 Thou/mm3 (0.0-0.2); Basophils % (Auto) 0 % (0-2.5); Eosinophils # (Auto) 0.0 Thou/mm3 (0.0-0.5); Eosinophils % (Auto) 0 % (0-10); Hematocrit 37.0 % (36.0-46.0); Hemoglobin 13.0 g/dL (12.0-16.0); Immature Granulocytes Auto 0.17 Thou/mm3 (0.00-0.00); Lymphocytes # (Auto) 1.3 Thou/mm3 (1.0-4.8); Lymphocytes % (Auto) 5 % (10-50); Mean Corpuscular HGB Conc 35.1 g/dl (31.0-37.0); Mean Corpuscular Hemoglobin 28.7 pg (25.0-35.0); Mean Corpuscular Volume 82 fL (80-100); Monocytes # (Auto) 1.5 Thou/mm3 (0.0-0.8); Monocytes % (Auto) 6 % (0-12); Neutrophils # (Auto) 22.1 Thou/mm3 (1.8-7.7); Neutrophils % (Auto) 88 % (37-80); Nucleated Red Blood Cell # 0.00 Thou/mm3 (0.00-0.00); Nucleated Red Blood Cell % 0 /100 WBC (0); Platelet Count 172 Thou/mm3 (140-440); RDW Standard Deviation 42.1 fL (36.4-46.3); Red Blood Count 4.53 Miln/mm3 (4.00-5.20); White Blood Count 25.1 Thou/mm3 (3.6-11.0)
[2024-12-15 07:40] LABS: Magnesium 3.8 mg/dL (1.6-2.6)
[2024-12-15] MEDS: DOCUSATE SOD 100 MG CAPSULE PO ×2 (08:24→21:35)
--- NOTE | 2024-12-15 09:00 | PC.NURSE ---
Dr. Starkey made aware of wbc no new orders
--- NOTE | 2024-12-15 09:57 | PD.LDPPPRG ---
Subjective Subjective Interval history: Patient doing well overall. Minimal discomfort. Currently on bedrest for IV MgSO4. Mairno in place draining clear yellow urine. Tolerating regular diet without nausea/vomiting. Lochia tapering as expected. No fevers/chills, no CP/SOB. No SCHULER, vision changes or RUQ pain. Exam Vital Signs Temp Pulse Resp BP Pulse Ox O2 Del Method 98.2 F 98 18 121/80 97 Room Air 12/15/24 08:42 12/15/24 08:42 12/15/24 08:42 12/15/24 08:42 12/15/24 06:33 12/15/24 08:42 Narrative Exam General: well developed, well nourished, no acute distress, conversant Cardiac: normal heart rate Lungs: breathing without distress Abdomen: soft, post-gravid, obese, non-tender, no rebound or guarding, Fundus firm at u-2cm. Extremities: no pain with palpation of calves, trace edema of BLE Objective Labs 12/15/24 06:34 12/13/24 13:10 Labs: Laboratory Results - last 24 hr 12/15/24 12/15/24 01:50 06:34 WBC 25.1 H D RBC 4.53 Hgb 13.0 Hct 37.0 MCV 82 MCH 28.7 MCHC 35.1 RDW Std Deviation 42.1 Plt Count 172 Neut % (Auto) 88 H Lymph % (Auto) 5 L Harnett % (Auto) 6 Eos % (Auto) 0 Baso % (Auto) 0 Neut # (Auto) 22.1 H Lymph # (Auto) 1.3 Harnett # (Auto) 1.5 H Eos # (Auto) 0.0 Baso # (Auto) 0.0 Immature Gran # (Auto) 0.17 H Absolute Nucleated RBC 0.00 Immature Gran % 1 H Nucleated RBC % 0 Magnesium 3.6 H 3.8 H Assessment & Plan Problem List (1) care and examination immediately after delivery: Status: Acute Assessment and plan: Jacqueline is a 34yo G1 nowP1 s/p uncomplicated after undergoing IOL for pre-eclampsia WITH severe features (severe range bp's developed during labor), doing well on PPD 0. She required multiple IV doses of labetalol during and immediately after labor, but bp's now normal to mild range. Benign exam. Hemodynamically stable with no evidence of infection. Hgb 13 from 12.3. WBC count 25.1 from 10.9, but no fevers/chills or other s/sx of infection. Plan: -Continue routine care -IV MgSO4 2g/hr. Delivery was at 0045 on 12/15, so will continue IV MgSO4 until 0045 on 12/16. Neuro and Mg checks per protocol. -Continue Nifedipine 30mg XL PO QD -Regular diet -marino catheter in place until IV MgSO4 is discontinued with bedrest and SCDs -Continue to closely observe bp's (2) Severe pre-eclampsia: Status: Acute (3) Encounter for induction of labor: Status: Acute (4) Supervision of high risk , unspecified, third trimester: Status: Acute (5) Obesity affecting in third trimester: Status: Acute Time Spent With Patient Time: Total time spent is greater than 50% in coordination of care (as documented) at patient's floor/unit and/or counseling patient:
[2024-12-15] MEDS: OXYTOCIN in NS 20 units 20 UNIT/1,000 ML BAG 125 UNIT IV (12:00)
[2024-12-15 13:30] LABS: Magnesium 4.4 mg/dL (1.6-2.6)
[2024-12-15] MEDS: ACETAMINOPHEN 325 MG TABLET 650 MG PO (17:15)
[2024-12-15 19:31] LABS: Magnesium 4.5 mg/dL (1.6-2.6)
[2024-12-16 00:35] VITALS: BP 134/96; PULSE 93; RESP 19; TEMP 36.7; O2SAT 97
[2024-12-16 03:35] VITALS: BP 132/85; PULSE 93; RESP 19; TEMP 36.9; O2SAT 98
[2024-12-16 07:10] VITALS: BP 138/88; PULSE 98; RESP 18; TEMP 36.8; O2SAT 98
[2024-12-16 08:39] VITALS: BP 129/73; PULSE 98
[2024-12-16] MEDS: NIFEdipine XL 30 MG TABCR PO (08:39)
--- NOTE | 2024-12-16 10:48 | PD.LDDS ---
DS: Providers Provider Date of admission: 12/13/24 13:59 Primary care physician: Physician No Primary/Family Admitting Provider: Hugo Marshall MD Attending Provider on Admission: Enedina Starkey MD Consults: 12/15/24 01:25 Referral Routine Comment: Attending Provider on DC: Enedina Starkey MD Discharging Provider: Enedina Starkey MD DS: Diagnosis Problem List Completed Was Problem List Reviewed/Reconciled?: Yes Summary/Hosp Course Brief History: 34-year-old 1 para 0 at 38 weeks and 1 day who receives care with Dr. Rao at [facility] was sent in from office due to elevated blood pressures in the severe range x 2. Patient initially presented to triage where her blood pressures were monitored and it continued to be elevated and her lab testing she had elevated urine protein creatinine ratio of 0.5 patient on presentation denies any headache or visual symptoms or epigastric or right upper quadrant pain. Patient does not report any baseline hypertension prior to and she was not being treated for any gestational hypertension during . She denies any contractions or leakage of fluid or vaginal bleeding and reports adequate movements. -- Jacqueline is doing well s/p uncomplicated on PPD 1. She received IV MgSO4 for 24hr . Blood pressures are normotensive on Nifedipine 30mg XL PO QD. She has no s/sx of worsening pre-E. She has had an uncomplicated course, meeting all milestones and feels ready for discharge home. She is ambulating without lightheadedness, tolerating regular diet no n/v, spontaneously voiding without issue. She has no chest pain or shortness of breath. No fevers or chills. No SCHULER, vision changes or RUQ pain. Minimal, appropriate discomfort. Vitals normal, benign exam. Hemodynamically stable with no evidence of infection. PP Hgb 13. Peripartum Data Delivery Method: Normal Vaginal Delivery Episiotomy Description: None Status at Discharge Functional status at discharge: independent ambulation Overall status at discharge: patient is back to baseline Time Spent with Patient Time attestation: Total time spent providing and/or coordinating discharge services: Exam Vital Signs Temp Pulse Resp BP Pulse Ox O2 Del Method 98.2 F 98 18 129/73 98 Room Air 12/16/24 07:10 12/16/24 08:39 12/16/24 07:10 12/16/24 08:39 12/16/24 07:10 12/16/24 07:10 Narrative Exam General: well developed, well nourished, no acute distress, conversant Cardiac: normal heart rate Lungs: breathing without distress Abdomen: soft, post-gravid, obese, non-tender, no rebound or guarding, Fundus firm at u-3cm. Extremities: no pain with palpation of calves, trace edema of BLE Discharge Plan Plan Patient Disposition: HOME (Self Care) Patient condition on transfer: Stable Prescriptions/Referrals Prescriptions/Med Rec: New docusate sodium 100 mg Capsule 100 mg PO BID 10 Days Qty: 20 0RF ibuprofen 800 mg tablet 800 mg PO Q8H PRN (Reason: See Comments) 10 Days Qty: 20 0RF nifedipine 30 mg Tablet Extended Release 24hr 30 mg PO QDAY 30 Days Qty: 30 0RF Continued PNV no.95-ferrous fumarate-FA [] 28 mg iron- 800 mcg tablet 1 tab PO QDAY Patient Comments: TAKE 1 TABLET BY MOUTH EVERY DAY Referrals: No Primary/Family,Physician [Primary Care Provider] Patient/Caregiver Discharge Instructions Discharge Activity: activity as tolerated and other Other Discharge Activity Instructions:: vaginal rest and no heavy lifting more than 10 pounds for 6 weeks Other Discharge Diet Instructions: regular diet Education Materials: After a Vaginal , Understanding Preeclampsia Print Language: Macedonian Activity Restrictions/Additional Instructions: follow up with Dr. Rao within 1 week for bp check, call clinic for appointment Stand Alone Forms: [employer] Award Info., Patient Portal Info Letter Discharge Order Discharge Orders: Discharge (Routine); Ordered 12/16/24 Ordered By: Enedina Starkey Planned Discharge Date 12/16/24
[2024-12-16 11:30] VITALS: BP 120/74; O2SAT 95
== END 2024-12-16 14:10 | disposition home or self-care (01) | DRG 560 ==
LOC: S4S1 14:52 → S4SX 14:53 → S4NX 12-15 03:15
PROVIDERS: Admitting Provider Obstetrics & Gynecology; Referring Provider Obstetrics & Gynecology; Visit Provider Obstetrics & Gynecology
DX: O14.14 Severe pre-eclampsia complicating childbirth (principal); O99.214 Obesity complicating childbirth; O70.0 First degree perineal laceration during delivery; O76 Abnormality in fetal heart rate and rhythm complicating labor and delivery; Z3A.38 38 weeks gestation of pregnancy; Z37.0 Single live birth
CPT/HCPCS: 36415; 59409; 76805; 80053; 81001; 82570; 83615; 83735; 84156; 84550; 85025; 85384; 85610; 85730; 86780; 86850; 86900; 86901; 87086; 87491; 87591; 87661; 94762; J2590; J2795; J3010; J3475; J3490; J7120; S0191; A9270; J1920